=== PATIENT | female | born 2000 | race Caucasian/White ===

== ENCOUNTER 2024-11-04 09:01 | Outpatient (CLI) | payer MEDICAID, SELFPAY ==
[2024-11-07 08:52] LABS: Pap Test Digital Imaging Done
== END 2024-11-04 09:02 | disposition home or self-care (01) ==
LOC: LKVREF 09:01
PROVIDERS: PCP Family Medicine; Visit Provider Family Medicine
DX: Z12.4 Encounter for screening for malignant neoplasm of cervix (principal)
CPT/HCPCS: 87624; 87625; 88141; 88142; 88175